=== PATIENT | female | born 2005 | race Caucasian/White ===

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

== ENCOUNTER 2023-06-18 10:19 | Emergency (ER) | payer OTHER ==
[~2023-06-18] VITALS: Ht 157.5 cm; Wt 50.0 kg
[~2023-06-18 10:19] MED LIST changes: +IBUP-1506 PO; -NOCURR; +PREN-217 PO
[2023-06-18 10:31] VITALS: TEMP 98.4
[2023-06-18 10:50] LABS: COVID AG,FIA SOURCE NASAL SWAB
[2023-06-18 11:15] LABS: SARS-COV2 (COVID) ANTIGEN,FIA Negative (Negative)
[2023-06-18 11:16] LABS: INFLUENZA TYPE A NEGATIVE FOR TYPE A (NEGATIVE); INFLUENZA TYPE B NEGATIVE FOR TYPE B (NEGATIVE)
[2023-06-18] MEDS ORDERED: DEXT15LI38 PO (13:05)
[2023-06-18 13:43] VITALS: BP 111/65; PULSE 80; RESP 16
== END 2023-06-18 13:50 | disposition home or self-care (01) ==
LOC: EMS 10:30
DX: J20.9 Acute bronchitis, unspecified (principal); Z20.822 Contact with and (suspected) exposure to COVID-19
CPT/HCPCS: 71101; 87804; 99284; Z7502

== ENCOUNTER 2024-04-08 17:34 | Emergency (ER) | payer OTHER ==
[~2024-04-08] VITALS: Ht 154.9 cm; Wt 47.7 kg
[~2024-04-08 17:34] MED LIST changes: +DEXT15LI38 PO
[2024-04-08 17:36] VITALS: BP 116/71; PULSE 90; RESP 18; TEMP 98.3; O2SAT 99
[2024-04-08 18:00] LABS: APPEARANCE,URINE HAZY (CLEAR); BILIRUBIN,URINE NEGATIVE (NEGATIVE); COLOR,URINE LIGHT YELLOW (YELLOW); GLUCOSE, URINE (UA) NEGATIVE (NEGATIVE); KETONES,URINE NEGATIVE (NEGATIVE); LEUKOCYTE ESTERASE ,URINE LARGE (NEGATIVE); NITRATE,URINE NEGATIVE (NEGATIVE); OCCULT BLOOD,URINE MODERATE (NEGATIVE); PH,URINE 5.5 (5.0-8.0); PROTEIN,URINE 30-70 mg/dL (NEGATIVE); UROBILINOGEN,URINE <=1.0 mg/dL (<=1.0)
[2024-04-08 18:10] LABS: RBC,URINE 26-50 /HPF (0-2); WBC,URINE 51-100 /HPF (0-5)
[2024-04-08 18:11] LABS: BACTERIA,URINE Few /HPF (None Seen); SQUAMOUS EPITHELIAL CELL,UR Few /LPF (None Seen)
[2024-04-08 18:33] LABS: BASOPHILS % (AUTO) 0.3 % (0.0-2.0); EOSINOPHILS % (AUTO) 0.7 % (1.0-6.0); HEMATOCRIT 39.5 % (36-46); LYMPHOCYTES # (AUTO) 3.3 K/uL (1.0-4.8); LYMPHOCYTES % (AUTO) 27.7 % (22.0-44.0); MEAN CORPUSCULAR HEMOGLOBIN 30.7 pg (26.0-34.0); MEAN CORPUSCULAR VOLUME 93 fL (80-100); MONOCYTES # (AUTO) 0.9 K/uL (0.1-1.0); MONOCYTES % (AUTO) 7.2 % (2.0-9.0); NEUTROPHILS # (AUTO) 7.6 K/uL (1.8-7.7); NEUTROPHILS % (AUTO) 64.1 % (40.0-70.0); PLATELET COUNT (AUTO) 235 K/uL (150-450); RED BLOOD CELL COUNT(AUTO) 4.24 MIL/uL (4.00-5.20); RED CELL DISTRIBUTION WIDTH 12.6 % (11.5-14.5); WHITE BLOOD COUNT (AUTO) 11.9 K/uL (4.5-11.0)
[2024-04-08 18:41] LABS: ANION GAP 10 mmol/L (8-16); CALCIUM, TOTAL 9.5 mg/dL (8.8-10.5); CARBON DIOXIDE 28 mmol/L (22-29); CHLORIDE 102 mmol/L (98-107); CREATININE 0.61 mg/dL (0.60-1.30); GLOMERULAR FILTR. RATE CALC > 60 mL/min (>60); GLUCOSE,RANDOM 98 mg/dL (70-110); POTASSIUM 3.9 mmol/L (3.5-5.1); SODIUM SERUM 140 mmol/L (136-145); UREA NITROGEN, BLOOD 11 mg/dL (7-18)
[2024-04-08 18:53] LABS: HCG,QUANTITATIVE < 1 mIU/mL (0-6)
[2024-04-08] MEDS ORDERED: CEPH-558 PO (21:46)
[2024-04-08] MEDS: CefTRIAXone SODIUM 1 GM/VIAL IM ONE (22:04)
[2024-04-08] MEDS: LIDOCAINE/PF 1% 2 ML VIAL IM ONE (22:05)
[2024-04-08] MEDS: AZITHROMYCIN 500 MG TABLET PO ONE (22:05)
== END 2024-04-08 22:11 | disposition home or self-care (01) ==
LOC: EMS 17:36
DX: N39.0 Urinary tract infection, site not specified (principal); N76.0 Acute vaginitis
CPT/HCPCS: 99283; 80048; 81001; 84702; 85025; 36415; 87086; 87186; 96372; J0456; J0696; J3490; 87491; 87591

== ENCOUNTER 2024-09-04 09:21 | Emergency (ER) | payer OTHER ==
[~2024-09-04] VITALS: Ht 154.9 cm; Wt 50.0 kg
[~2024-09-04 09:21] MED LIST changes: +CEPH-558 PO
[2024-09-04 09:26] VITALS: TEMP 98.2
[2024-09-04 13:33] VITALS: BP 118/67; PULSE 87; RESP 18; O2SAT 99
== END 2024-09-04 13:49 | disposition home or self-care (01) ==
LOC: EMS 09:21
DX: N94.6 Dysmenorrhea, unspecified (principal)
CPT/HCPCS: 76856; 99284; Z7502